=== PATIENT | female | born 1945 | race Caucasian/White ===

== ENCOUNTER 2024-08-16 00:57 | Outpatient (CLI) | payer MEDICARE, SELFPAY ==
[2024-08-16 12:11] LABS: HCT 38.8 % (36.0-46.0); HGB 12.5 g/dL (11.2-15.7); MCH 30.4 pg (27.0-33.0); MCHC 32.2 % (32.0-36.0); MCV 94 fL (80-95); MPV 10.2 fL (8.0-11.0); Platelet Count 293 10^3/uL (130-400); RBC 4.11 10^6/uL (3.93-5.22); RDW 13.5 % (11.7-14.6); RDW-SD 47.3 fL; WBC 6.17 10^3/uL (4.4-10.8)
[2024-08-16 12:26] LABS: Hemoglobin A1C 5.6 % (<5.7)
[2024-08-16 12:32] LABS: Anion Gap 8.6 mmol/L (3-11); BUN 9 mg/dL (7-18); CO2 29.4 mmol/L (21.0-32.0); CREATININE 0.7 mg/dL (0.55-1.02); Calcium 9.8 mg/dL (8.5-10.1); Calculated LDL 90 mg/dL (<100); Chloride 102 mmol/L (98-107); Cholesterol 185 mg/dL (<200); Estimated GFR 89.02 (mL/min/1.73m2); Glucose 94 mg/dL (74-106); HDL Cholesterol 84 mg/dL (>or=50); Potassium 4.2 mmol/L (3.5-5.1); Sodium 140 mmol/L (136-145); TSH (W/Ref FT4) 2.37 uIU/mL (0.36-3.74); Triglyceride 58 mg/dL (<150)
== END 2024-08-16 00:58 | disposition home or self-care (01) ==
LOC: LOS 00:58
PROVIDERS: PCP Nurse Practitioner Family; Visit Provider Nurse Practitioner Family
DX: I10 Essential (primary) hypertension (principal); E78.5 Hyperlipidemia, unspecified; R73.01 Impaired fasting glucose
CPT/HCPCS: 36415; 80048; 80061; 85027; 83036; 84443

== ENCOUNTER 2025-02-05 03:21 | Outpatient (CLI) | payer MEDICARE, SELFPAY ==
--- NOTE | 2025-02-05 07:15 | DI.CT_ITS ---
Exam(s) CT ABD AORTA CTA W RUNOFF EXAM: CT ABD AORTA CTA W RUNOFF CLINICAL HISTORY: new LE claudication,i73.9. TECHNIQUE: Imaging Protocol: Axial computed tomography images with coronal and sagittal reformatted images were created and reviewed CONTRAST MATERIAL: Intravenous: Omnipaque 350 Contrast volume:125 mL COMPARISON: No exams were available for comparison FINDINGS: ABDOMINAL AORTA/INFLOW: There is no evidence abdominal aortic aneurysm nor abdominal aortic dissection. There is no significant stenosis at the aortic bifurcation. The common iliac arteries are patent. There is some calcified plaque on the medial wall the right common iliac artery but without significant stenosis at this level nor at the junction of the common and external iliac arteries on both sides and both external iliac arteries exhibit normal diameters, as do the common femoral arteries. There is no evidence of significant aneurysm nor dissection of the internal iliac arteries. Mild atherosclerotic narrowing of the proximal left internal iliac artery is incidentally noted. 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 Profundal collaterals reconstitute the distal left SFA in the lower left thigh and this vessel is continuous with the left popliteal artery. There is a moderate focal stenosis in the left popliteal artery at the level the femoral condyles related to both calcified and noncalcified plaque. There is no evidence of popliteal artery aneurysm. The left tibioperoneal trunk is patent. There is no significant stenosis at the origin of the anterior and posterior tibial arteries. There is satisfactory three-vessel runoff in the left calf. The anterior tibial artery continues into the foot as the dorsalis pedis. The posterior tibial artery continues into the foot around the medial malleolus as the plantar arteries. The peroneal artery is opacified to the distal calf-ankle level (which is normal). OUTFLOW RIGHT LOWER EXTREMITY: The right SFA artery is patent throughout its length although there is significant stenosis at its junction with the right popliteal artery, approximately 70 percent stenosis. Popliteal artery below this level exhibits mild stenosis is. There is no evidence of popliteal artery aneurysm. The right tibioperoneal trunk is patent. There is no stenosis at the origin of the right anterior tibial artery. The right posterior tibial artery is occluded 1 cm distal to its origin. The main runoff artery in the right calf is the patent anterior tibial artery which exhibits no significant stenosis and is continuous into the right foot as the dorsalis pedis artery. Of the thinner right peroneal artery is opacified to the distal calf level. 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 There is no evidence of obvious embolization of the more distal SMA..Milder stenosis is seen at the origin of the celiac artery. The inferior mesenteric artery exhibits significant stenosis at its origin but is otherwise patent. There is calcified and noncalcified plaque at the origin of the renal arteries. Mild bilateral stenosis. No poststenotic dilatation evident in the renal arteries. No evidence of fibromuscular dysplasia. Both kidneys exhibit normal size. There is no ascites. LIVER: Liver is hypodense implying steatosis. There no discrete focal hepatic lesions evident. GALLBLADDER/BILIARY: No obvious gallbladder pathology. CBD is not dilated. PANCREAS: There is diffuse enhancement of the pancreas slightly more so than typical but there are no discrete pancreatic masses. Pancreatic duct diameter is upper normal. No peripancreatic fluid collections. SPLEEN: Spleen is not enlarged. There are no intrasplenic lesions. ADRENALS: There are no significant adrenal masses. KIDNEYS: Kidneys exhibit normal size. No solid renal masses. No obvious calculi nor hydronephrosis.. LYMPH NODES: There is no retroperitoneal nor para-aortic adenopathy. No obvious mesenteric masses. ABDOMINAL WALL: No evidence of significant anterior abdominal wall hernia. GI: There is no evidence of bowel obstruction, free air, nor abscess.No obvious evidence of ischemic appearing bowel loops. PELVIS: LYMPH NODES: There is no intrapelvic nor inguinal adenopathy. GI: No evidence of appendicitis.No evidence of sigmoid diverticulitis. URINARY BLADDER: No calculi nor masses evident REPRODUCTIVE: Uterus size and adnexal regions appear age-appropriate. OSSEOUS: No significant osseous lesions. Multilevel advanced chronic degenerative disc disease. There is grade 1 anterolisthesis of L3 upon L4 related to facet arthropathy. There are no pars defects. Degenerative changes in the hips, right greater than left. No significant osseous lesions. SI joints appear unremarkable. IMPRESSION: 1. The abdominal aorta and aortoiliac segments are patent without significant stenosis, dissection, nor aneurysmal dilatation. 2. 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 Profundal collaterals reconstitute the distal left SFA in the lower calf. There is a moderate focal stenosis in the ipsilateral left popliteal artery (there is no popliteal artery aneurysm). There is patent 3 vessel runoff in the left calf. 3. On the right side the SFA is patent but there is a significant focal stenosis in the right popliteal artery, approximately 70-80 percent stenosis (there is no popliteal artery aneurysm). There is 2 vessel runoff in the right calf. The right posterior tibial artery is occluded just beyond its origin. The dominant runoff vessel in the right calf is the anterior tibial artery. 4. Other findings as above. RADIATION DOSE DELIVERED: 609.75mGy.cm Total DLP DATA REPOSITORY: All CT scans at this facility are submitted to the National Radiology Data Registry (NRDR) Dose Index Registry (DIR) with the [employer] ([employer]). RADIATION OPTIMIZATION: All CT scans at this facility use at least one of these dose optimization techniques: automated exposure control; mA and/or kV adjustment per patient size (includes targeted exams where dose is matched to clinical indication); or iterative reconstruction.
[2025-02-05 14:07] LABS: Estimated GFR 89.02 (mL/min/1.73m2)
[2025-02-05] MEDS: Normal Saline Flush 10 ML SYR IVP (14:28)
[2025-02-05] MEDS: Normal Saline - Diluent 50 ML VIAL IJ ×2 (14:31→14:32)
[2025-02-05] MEDS: Omnipaque 350 MG/ML 100 ML BTL IJ (14:32)
[2025-02-05] MEDS: Omnipaque 350 MG/ML 50 ML BTL IJ (14:33)
== END 2025-02-05 03:41 ==
LOC: DI 03:22
PROVIDERS: PCP Nurse Practitioner Family; Visit Provider Nurse Practitioner Family
DX: I70.201 Unspecified atherosclerosis of native arteries of extremities, right leg (principal)
CPT/HCPCS: 75635; 82565; J3490; Q9967